=== PATIENT | male | born 1980 | race Caucasian/White ===

== ENCOUNTER 2017-10-08 20:35 | Inpatient (IN) | payer MEDICARE, MEDICAID ==
[~2017-10-08] VITALS: Ht 174 cm; Wt 116.9 kg
[~2017-10-08 20:35] MED LIST: PARO40TA PO; TEMA15CA PO
[2017-10-08 20:51] LABS: BASOPHILS % (AUTO) 0.9 % (0.0-2.0); EOSINOPHILS % (AUTO) 2.7 % (1.0-6.0); HEMATOCRIT 43.6 % (41-53); HEMOGLOBIN 15.8 g/dL (13.5-17.5); LYMPHOCYTES # (AUTO) 3.1 K/uL (1.0-4.8); LYMPHOCYTES % (AUTO) 31.1 % (22.0-44.0); MEAN CORPUSCULAR HEMOGLOBIN 31.7 pg (26.0-34.0); MEAN CORPUSCULAR HGB CONC 36.2 G/dL (31.0-37.0); MEAN CORPUSCULAR VOLUME 87 fL (80-100); MONOCYTES # (AUTO) 0.5 K/uL (0.1-1.0); MONOCYTES % (AUTO) 4.6 % (2.0-9.0); NEUTROPHILS % (AUTO) 60.7 % (40.0-70.0); PLATELET COUNT (AUTO) 238 K/uL (150-450); RED BLOOD CELL COUNT(AUTO) 4.99 MIL/uL (4.50-5.90); RED CELL DISTRIBUTION WIDTH 13.7 % (11.5-14.5)
[2017-10-08 20:58] LABS: ANION GAP 7 mmol/L (8-16); CALCIUM, TOTAL 8.9 mg/dL (8.8-10.5); CARBON DIOXIDE 30 mmol/L (22-29); CHLORIDE 98 mmol/L (98-107); CREATININE 1.01 mg/dL (0.60-1.30); GLOMERULAR FILTR. RATE CALC > 60 mL/min (>60); GLUCOSE,RANDOM 280 mg/dL (70-110); POTASSIUM 4.2 mmol/L (3.5-5.1); SODIUM SERUM 135 mmol/L (136-145); UREA NITROGEN, BLOOD 13 mg/dL (7-18)
[2017-10-08 21:02] LABS: AMPHET/METH SCREEN,URINE NEGATIVE (NEGATIVE); BARBITURATE SCREEN, URINE NEGATIVE (NEGATIVE); BENZODIAZEPINES SCREEN,URINE NEGATIVE (NEGATIVE); CANNABINOID SCREEN,URINE NEGATIVE (NEGATIVE); COCAINE SCREEN,URINE NEGATIVE (NEGATIVE); METHADONE SCREEN, URINE NEGATIVE (NEGATIVE); OPIATE SCREEN,URINE NEGATIVE (NEGATIVE); PHENCYCLIDINE SCREEN,URINE NEGATIVE (NEGATIVE)
[2017-10-08] MEDS ORDERED: CLON2 PO (21:02)
[2017-10-08] MEDS ORDERED: SERT100T12 PO (21:02)
[2017-10-08] MEDS ORDERED: LISI-661 PO (21:02)
[2017-10-08] MEDS ORDERED: SIMV-259 PO (21:02)
[2017-10-08] MEDS ORDERED: LORA10TA7 PO (21:02)
[2017-10-08] MEDS ORDERED: GABA-531 PO (21:02)
[2017-10-08] MEDS ORDERED: FLUT16H NASAL (21:02)
[2017-10-08 21:03] LABS: ALANINE AMINOTRANSFERASE 83 U/L (12-78); ALBUMIN 4.1 g/dL (3.4-5.0); ALKALINE PHOSPHATASE 108 U/L (46-116); ASPARTATE AMINOTRANSFERASE 33 U/L (15-37); BILIRUBIN,TOTAL 0.5 mg/dL (0.1-1.0)
[2017-10-08 21:44] LABS: TOTAL PROTEIN, SERUM 7.2 g/dL (6.4-8.2)
[2017-10-08] MEDS ORDERED: HALOPERIDOL 5 MG TABLET PO ONE (21:45)
[2017-10-08] MEDS ORDERED: LORazepam 2 MG TABLET PO ONE (21:45)
[2017-10-08] MEDS ORDERED: DiphenhydrAMINE HCL 50 MG CAPSULE PO ONE (21:45)
[2017-10-08] MEDS ORDERED: ZOLPIDEM TARTRATE 10 MG TABLET PO PRN (22:30)
[2017-10-08] MEDS ORDERED: HALOPERIDOL 5 MG TABLET PO PRN (22:30)
[2017-10-08] MEDS ORDERED: LORazepam 2 MG TABLET PO PRN (22:30)
[2017-10-09 03:15] LABS: CHOL/HDL RATIO 10.6 (4.2-7.3); CHOLESTEROL 211 mg/dL (131-200); HDL CHOLESTEROL 20 mg/dL (40-60); TRIGLYCERIDES 1429 mg/dL (15-150)
[2017-10-09 12:44] VITALS: BP 120/71
[2017-10-09 16:05] VITALS: BP 126/73
[2017-10-10 04:28] VITALS: BP 121/71
[2017-10-10 08:00] VITALS: BP 157/90
[2017-10-10] MEDS ORDERED: BACITRACIN 28.4 GM OINTMENT TP PRN (08:00)
[2017-10-10] MEDS ORDERED: BENZOCAINE/MENTHOL LOZENGE [8 LOZENGES/PACKET] MM PRN (08:00)
[2017-10-10] MEDS ORDERED: ONDANSETRON HCL 4 MG TABLET PO PRN (08:00)
[2017-10-10] MEDS ORDERED: ACETAMINOPHEN 325 MG TABLET PO PRN ×2 (08:00→12:00)
[2017-10-10] MEDS ORDERED: IBUPROFEN 600 MG TABLET PO PRN (08:00)
[2017-10-10] MEDS ORDERED: CloNIDine HCL 0.1 MG TABLET PO PRN (08:00)
[2017-10-10] MEDS ORDERED: MAGNESIUM HYDROXIDE SUSPENSION 30 ML UDCUP PO PRN ×2 (08:00→12:00)
[2017-10-10] MEDS ORDERED: ALBUTEROL SULFATE HFA 90 MCG/PUFF 8 GM INHALER IH PRN (08:00)
[2017-10-10] MEDS ORDERED: DEXTROSE 50%-WATER 25 GM/50 ML SYRINGE IVP PRN (08:00)
[2017-10-10] MEDS ORDERED: MAG HYDROX/AL HYDROX/SIMETH ES 30 ML SUSPENSION UDCUP PO PRN ×2 (08:00→12:00)
[2017-10-10] MEDS ORDERED: PETROLATUM,WHITE 71 GM JELLY TP PRN (08:00)
[2017-10-10] MEDS ORDERED: LOPERAMIDE HCL 2 MG CAPSULE PO PRN ×2 (08:00→12:00)
[2017-10-10] MEDS: OMEGA-3/DHA/EPA/FISH OIL 1,000 MG CAPSULE PO SCH (09:13)
[2017-10-10] MEDS: LORATADINE 10 MG TABLET PO SCH (09:13)
[2017-10-10] MEDS: LISINOPRIL 10 MG TABLET PO SCH (09:14)
[2017-10-10] MEDS: FLUTICASONE PROPIONATE 50 MCG/SPRAY 16 GM NASAL SPRAY NASAL PRN (09:15)
[2017-10-10] MEDS ORDERED: OLANZapine 5 MG RAPDIS TABLET PO PRN (12:00)
[2017-10-10] MEDS ORDERED: TUBERCULIN, PURIFIED PROTEIN DERIVATIVE 5 TU/0.1 ML SYG ID ONE (12:00)
[2017-10-10] MEDS ORDERED: GuaiFENesin/D-METHORPHAN [SUGAR-FREE] 200-20MG/10 ML SYRUP UDCUP PO PRN (12:00)
[2017-10-10] MEDS ORDERED: HydrOXYzine PAMOATE 50 MG CAPSULE PO PRN (12:00)
[2017-10-10] MEDS: GABAPENTIN 300 MG CAPSULE PO SCH ×2 (13:43→16:11)
[2017-10-10] MEDS: THIAMINE HCL 100 MG TABLET PO SCH (16:11)
[2017-10-10 16:22] VITALS: BP 129/76
[2017-10-10 16:47] LABS: GLUCOMETER DEV NAME(LOC) 3EI B; GLUCOSE,POINT OF CARE 208 MG/DL (70-110)
[2017-10-10] MEDS: INSULIN ASPART 100 UNITS/ML SQ PRN ×2 (17:05→20:55)
[2017-10-10] MEDS ORDERED: OLAN5TAB30 PO (17:22)
[2017-10-10] MEDS ORDERED: OMEG-135 PO (17:22)
[2017-10-10] MEDS ORDERED: SERT100T12 PO (17:22)
[2017-10-10] MEDS ORDERED: GABA-531 PO (17:22)
[2017-10-10 20:57] LABS: GLUCOMETER DEV NAME(LOC) 3EI B; GLUCOSE,POINT OF CARE 232 MG/DL (70-110)
[2017-10-10] MEDS ORDERED: SIMVASTATIN 10 MG TABLET PO SCH (21:00)
[2017-10-10] MEDS ORDERED: OLANZapine 5 MG RAPDIS TABLET PO SCH (21:00)
[2017-10-11 05:28] LABS: GLUCOMETER DEV NAME(LOC) 3EI B; GLUCOSE,POINT OF CARE 155 MG/DL (70-110)
[2017-10-11] MEDS: INSULIN ASPART 100 UNITS/ML SQ PRN (07:02)
[2017-10-11 07:53] LABS: HEMOGLOBIN A1C 7.3 % (4.5-6.2)
[2017-10-11] MEDS: LISINOPRIL 10 MG TABLET PO SCH (07:54)
[2017-10-11] MEDS: GABAPENTIN 300 MG CAPSULE PO SCH ×2 (07:54→12:20)
[2017-10-11] MEDS: THIAMINE HCL 100 MG TABLET PO SCH (07:54)
[2017-10-11] MEDS: FLUTICASONE PROPIONATE 50 MCG/SPRAY 16 GM NASAL SPRAY NASAL PRN (07:55)
[2017-10-11] MEDS: OMEGA-3/DHA/EPA/FISH OIL 1,000 MG CAPSULE PO SCH (07:55)
[2017-10-11] MEDS: LORATADINE 10 MG TABLET PO SCH (07:55)
[2017-10-11 08:10] LABS: CHOL/HDL RATIO 5.8 (4.2-7.3); THYROID STIMULATING HORMONE 2.04 uIU/mL (0.36-3.74)
[2017-10-11] MEDS ORDERED: SERTRALINE HCL 100 MG TABLET PO SCH (09:00)
[2017-10-11] MEDS ORDERED: MULTIVITAMINS WITH MINERALS, THERAPEUTIC TABLET PO SCH (09:00)
[2017-10-11] MEDS ORDERED: FOLIC ACID 1 MG TABLET PO SCH (09:00)
[2017-10-11 09:19] VITALS: BP 138/87
[2017-10-11 11:13] LABS: GLUCOMETER DEV NAME(LOC) 3EI B; GLUCOSE,POINT OF CARE 136 MG/DL (70-110)
[2017-10-11] MEDS ORDERED: LISI-660 PO (11:20)
[2017-10-11] MEDS ORDERED: OMEG-135 PO (11:20)
== END 2017-10-11 14:49 | disposition home or self-care (01) | DRG 885 ==
LOC: EMS 20:36 → B2X 10-09 10:00 → 3EI 10-09 19:13
PROVIDERS: ADMIT Psychiatry & Neurology Child & Adolescent Psychiatry; ATTEND Psychiatry & Neurology Psychiatry
DX: F20.9 Schizophrenia, unspecified (principal); E87.1 Hypo-osmolality and hyponatremia; E66.9 Obesity, unspecified; R45.850 Homicidal ideations; E78.5 Hyperlipidemia, unspecified; I10 Essential (primary) hypertension; J44.9 Chronic obstructive pulmonary disease, unspecified; F41.9 Anxiety disorder, unspecified; J31.0 Chronic rhinitis; G47.00 Insomnia, unspecified; F10.10 Alcohol abuse, uncomplicated; R73.9 Hyperglycemia, unspecified; F22 Delusional disorders; Z71.41 Alcohol abuse counseling and surveillance of alcoholic; Z56.0 Unemployment, unspecified; Z68.38 Body mass index [BMI] 38.0-38.9, adult; Z79.899 Other long term (current) drug therapy
CPT/HCPCS: 80074; 82306; 82962; 83036; 84295; 84443; 99285; G0480

== ENCOUNTER 2018-11-01 21:31 | Emergency (ER) | payer MEDICARE, MEDICAID ==
[~2018-11-01] VITALS: Ht 175.3 cm; Wt 103.0 kg
[~2018-11-01 21:31] MED LIST changes: +GABA-531 PO; +LISI-660 PO; +LORA10TA7 PO; +OLAN5TAB30 PO; +OMEG-135 PO; -PARO40TA PO; +SERT100T12 PO; +SIMV-259 PO; -TEMA15CA PO
[2018-11-02 02:33] LABS: AMPHET/METH SCREEN,URINE NEGATIVE (NEGATIVE); BARBITURATE SCREEN, URINE NEGATIVE (NEGATIVE); BENZODIAZEPINES SCREEN,URINE NEGATIVE (NEGATIVE); CANNABINOID SCREEN,URINE POSITIVE (NEGATIVE); COCAINE SCREEN,URINE NEGATIVE (NEGATIVE); METHADONE SCREEN, URINE NEGATIVE (NEGATIVE); OPIATE SCREEN,URINE NEGATIVE (NEGATIVE)
[2018-11-02 02:36] LABS: PHENCYCLIDINE SCREEN,URINE NEGATIVE (NEGATIVE)
[2018-11-02 04:52] VITALS: BP 128/79
== END 2018-11-02 05:09 | disposition home or self-care (01) ==
LOC: EMS 21:32
DX: F12.929 Cannabis use, unspecified with intoxication, unspecified (principal); F32.9 Major depressive disorder, single episode, unspecified; F20.9 Schizophrenia, unspecified; F41.9 Anxiety disorder, unspecified; I10 Essential (primary) hypertension; E78.00 Pure hypercholesterolemia, unspecified; Z79.899 Other long term (current) drug therapy
CPT/HCPCS: 36415; 80307; 99283; G0480

== ENCOUNTER 2020-05-27 21:07 | Emergency (ER) | payer MEDICARE, MEDICAID ==
[~2020-05-27] VITALS: Ht 170.2 cm; Wt 104.5 kg
[2020-05-27 22:02] LABS: GLUCOSE,POINT OF CARE 80 MG/DL (70-110)
[2020-05-27 22:30] LABS: COVID AG,FIA SOURCE NASOPHARYNGEAL
[2020-05-27 22:32] LABS: BASOPHILS % (AUTO) 0.6 % (0.0-2.0); EOSINOPHILS % (AUTO) 3.7 % (1.0-6.0); HEMOGLOBIN 13.2 g/dL (13.5-17.5); LYMPHOCYTES # (AUTO) 2.7 K/uL (1.0-4.8); LYMPHOCYTES % (AUTO) 30.2 % (22.0-44.0); MEAN CORPUSCULAR HEMOGLOBIN 30.1 pg (26.0-34.0); MEAN CORPUSCULAR HGB CONC 33.8 G/dL (31.0-37.0); MEAN CORPUSCULAR VOLUME 89 fL (80-100); MONOCYTES # (AUTO) 0.5 K/uL (0.1-1.0); MONOCYTES % (AUTO) 5.4 % (2.0-9.0); NEUTROPHILS # (AUTO) 5.4 K/uL (1.8-7.7); NEUTROPHILS % (AUTO) 60.1 % (40.0-70.0); PLATELET COUNT (AUTO) 198 K/uL (150-450); RED BLOOD CELL COUNT(AUTO) 4.38 MIL/uL (4.50-5.90); RED CELL DISTRIBUTION WIDTH 13.5 % (11.5-14.5)
[2020-05-27 22:39] LABS: AMPHET/METH SCREEN,URINE NEGATIVE (NEGATIVE); BARBITURATE SCREEN, URINE NEGATIVE (NEGATIVE); BENZODIAZEPINES SCREEN,URINE NEGATIVE (NEGATIVE); CANNABINOID SCREEN,URINE NEGATIVE (NEGATIVE); COCAINE SCREEN,URINE NEGATIVE (NEGATIVE); METHADONE SCREEN, URINE NEGATIVE (NEGATIVE); OPIATE SCREEN,URINE NEGATIVE (NEGATIVE)
[2020-05-27 22:40] LABS: PHENCYCLIDINE SCREEN,URINE NEGATIVE (NEGATIVE)
[2020-05-27 22:47] LABS: ANION GAP 10 mmol/L (8-16); CALCIUM, TOTAL 9.4 mg/dL (8.8-10.5); CARBON DIOXIDE 27 mmol/L (22-29); CHLORIDE 100 mmol/L (98-107); CREATININE 0.84 mg/dL (0.60-1.30); GLOMERULAR FILTR. RATE CALC > 60 mL/min (>60); GLUCOSE,RANDOM 81 mg/dL (70-110); POTASSIUM 3.2 mmol/L (3.5-5.1); SODIUM SERUM 137 mmol/L (136-145); UREA NITROGEN, BLOOD 11 mg/dL (7-18)
[2020-05-27 22:54] LABS: ALANINE AMINOTRANSFERASE 59 U/L (12-78); ALBUMIN 4.1 g/dL (3.4-5.0); ALKALINE PHOSPHATASE 75 U/L (46-116); ASPARTATE AMINOTRANSFERASE 32 U/L (15-37); BILIRUBIN,TOTAL 0.3 mg/dL (0.1-1.0); TOTAL PROTEIN, SERUM 6.9 g/dL (6.4-8.2)
[2020-05-28] MEDS ORDERED: POTASSIUM CHLORIDE 20 MEQ ER TABLET PO ONE
[2020-05-28 00:40] VITALS: BP 124/72
== END 2020-05-28 00:45 | disposition home or self-care (01) ==
LOC: EMS 21:08
DX: R45.851 Suicidal ideations (principal); F32.9 Major depressive disorder, single episode, unspecified; I10 Essential (primary) hypertension; E78.00 Pure hypercholesterolemia, unspecified; F41.9 Anxiety disorder, unspecified; Z20.828 Contact with and (suspected) exposure to other viral communicable diseases
CPT/HCPCS: 36415; 80053; 80307; 82962; 85025; 87426; 99284; G0480

== ENCOUNTER 2022-03-03 09:48 | Emergency (ER) | payer MEDICARE, MEDICAID ==
[~2022-03-03] VITALS: Ht 172.7 cm; Wt 105.0 kg
[~2022-03-03 09:48] MED LIST changes: -LISI-660 PO; +LISI-892 PO; +OMEG-108 PO; -OMEG-135 PO; +SERT-162 PO; -SERT100T12 PO
[2022-03-03] MEDS ORDERED: SODIUM CHLORIDE 0.9% 1,000 ML IV ONE (10:15)
[2022-03-03 10:29] LABS: BASOPHILS % (AUTO) 0.3 % (0.0-2.0); EOSINOPHILS % (AUTO) 2.3 % (1.0-6.0); HEMATOCRIT 37.9 % (41-53); HEMOGLOBIN 13.1 g/dL (13.5-17.5); LYMPHOCYTES # (AUTO) 2.3 K/uL (1.0-4.8); LYMPHOCYTES % (AUTO) 25.9 % (22.0-44.0); MEAN CORPUSCULAR HEMOGLOBIN 29.9 pg (26.0-34.0); MEAN CORPUSCULAR HGB CONC 34.7 G/dL (31.0-37.0); MEAN CORPUSCULAR VOLUME 86 fL (80-100); MONOCYTES # (AUTO) 0.6 K/uL (0.1-1.0); MONOCYTES % (AUTO) 7.3 % (2.0-9.0); NEUTROPHILS # (AUTO) 5.6 K/uL (1.8-7.7); NEUTROPHILS % (AUTO) 64.2 % (40.0-70.0); PLATELET COUNT (AUTO) 217 K/uL (150-450); RED CELL DISTRIBUTION WIDTH 13.5 % (11.5-14.5)
[2022-03-03 10:53] LABS: ANION GAP 9 mmol/L (8-16); CARBON DIOXIDE 25 mmol/L (22-29); CHLORIDE 103 mmol/L (98-107); CREATININE 1.13 mg/dL (0.60-1.30); GLUCOSE,RANDOM 202 mg/dL (70-110); POTASSIUM 3.5 mmol/L (3.5-5.1); SODIUM SERUM 137 mmol/L (136-145); UREA NITROGEN, BLOOD 14 mg/dL (7-18)
[2022-03-03 11:00] LABS: ALANINE AMINOTRANSFERASE 34 U/L (12-78); ALBUMIN 3.9 g/dL (3.4-5.0); ALKALINE PHOSPHATASE 92 U/L (46-116); ASPARTATE AMINOTRANSFERASE 16 U/L (15-37); BILIRUBIN,TOTAL 0.2 mg/dL (0.1-1.0); GLOMERULAR FILTR. RATE CALC > 60 mL/min (>60); TOTAL PROTEIN, SERUM 7.4 g/dL (6.4-8.2)
[2022-03-03 13:28] VITALS: BP 122/81
== END 2022-03-03 14:14 | disposition home or self-care (01) ==
LOC: EMS 09:48
DX: F12.129 Cannabis abuse with intoxication, unspecified (principal); I10 Essential (primary) hypertension; F41.9 Anxiety disorder, unspecified; F32.9 Major depressive disorder, single episode, unspecified; F20.9 Schizophrenia, unspecified; E78.00 Pure hypercholesterolemia, unspecified; Z79.899 Other long term (current) drug therapy
CPT/HCPCS: 99284; 96360; 80053; 85025; 36415; 93005; J7030

== ENCOUNTER 2022-06-04 19:00 | Emergency (ER) | payer MEDICARE, MEDICAID ==
[~2022-06-04] VITALS: Ht 172.7 cm; Wt 102.3 kg
[~2022-06-04 19:00] MED LIST changes: -OMEG-108 PO; +OMEG-135 PO
[2022-06-04 20:46] VITALS: BP 118/79
== END 2022-06-04 20:50 | disposition home or self-care (01) ==
LOC: EMS 19:00
DX: S60.222A Contusion of left hand, initial encounter (principal); F41.9 Anxiety disorder, unspecified; F32.A Depression, unspecified; E78.00 Pure hypercholesterolemia, unspecified; I10 Essential (primary) hypertension; F20.9 Schizophrenia, unspecified; F12.90 Cannabis use, unspecified, uncomplicated; W19.XXXA Unspecified fall, initial encounter; Y93.89 Activity, other specified; Y92.89 Other specified places as the place of occurrence of the external cause; Y99.8 Other external cause status
CPT/HCPCS: 99283

== ENCOUNTER 2023-08-19 15:30 | Emergency (ER) | payer MEDICARE, MEDICAID ==
[~2023-08-19] VITALS: Ht 175.3 cm; Wt 110.0 kg
[2023-08-19 16:51] LABS: BASOPHILS % (AUTO) 0.5 % (0.0-2.0); HEMATOCRIT 37.8 % (41-53); HEMOGLOBIN 13.2 g/dL (13.5-17.5); LYMPHOCYTES # (AUTO) 1.8 K/uL (1.0-4.8); LYMPHOCYTES % (AUTO) 25.8 % (22.0-44.0); MEAN CORPUSCULAR HEMOGLOBIN 31.4 pg (26.0-34.0); MEAN CORPUSCULAR VOLUME 90 fL (80-100); MONOCYTES # (AUTO) 0.5 K/uL (0.1-1.0); MONOCYTES % (AUTO) 7.4 % (2.0-9.0); NEUTROPHILS # (AUTO) 4.3 K/uL (1.8-7.7); NEUTROPHILS % (AUTO) 61.3 % (40.0-70.0); PLATELET COUNT (AUTO) 214 K/uL (150-450); RED BLOOD CELL COUNT(AUTO) 4.21 MIL/uL (4.50-5.90); RED CELL DISTRIBUTION WIDTH 13.5 % (11.5-14.5); WHITE BLOOD COUNT (AUTO) 7.1 K/uL (4.5-11.0)
[2023-08-19 17:13] LABS: ALCOHOL, BLOOD (SERUM) < 3 mg/dL (0-10)
[2023-08-19 17:14] LABS: ALBUMIN 3.9 g/dL (3.4-5.0); ALKALINE PHOSPHATASE 113 U/L (46-116); ANION GAP 13 mmol/L (8-16); ASPARTATE AMINOTRANSFERASE 23 U/L (15-37); BILIRUBIN,TOTAL 0.2 mg/dL (0.1-1.0); CALCIUM, TOTAL 8.2 mg/dL (8.8-10.5); CARBON DIOXIDE 24 mmol/L (22-29); CHLORIDE 105 mmol/L (98-107); CREATININE 1.03 mg/dL (0.60-1.30); GLOMERULAR FILTR. RATE CALC > 60 mL/min (>60); GLUCOSE,RANDOM 128 mg/dL (70-110); POTASSIUM 3.7 mmol/L (3.5-5.1); SODIUM SERUM 142 mmol/L (136-145); UREA NITROGEN, BLOOD 15 mg/dL (7-18)
[2023-08-19 17:36] LABS: ALANINE AMINOTRANSFERASE 51 U/L (12-78)
[2023-08-19 17:39] LABS: PH,URINE DRUG SCREEN 5.5 (5.0-8.0)
[2023-08-19 17:43] LABS: AMPHET/METH SCREEN,URINE NEGATIVE (NEGATIVE); BARBITURATE SCREEN, URINE NEGATIVE (NEGATIVE); BENZODIAZEPINES SCREEN,URINE NEGATIVE (NEGATIVE); CANNABINOID SCREEN,URINE POSITIVE (NEGATIVE); COCAINE SCREEN,URINE NEGATIVE (NEGATIVE); METHADONE SCREEN, URINE NEGATIVE (NEGATIVE); OPIATE SCREEN,URINE NEGATIVE (NEGATIVE); PHENCYCLIDINE SCREEN,URINE NEGATIVE (NEGATIVE)
[2023-08-19 17:44] LABS: ALCOHOL, URINE DRUG SCREEN NEGATIVE (NEGATIVE)
[2023-08-19] MEDS ORDERED: HALOPERIDOL 5 MG TABLET PO ONE (20:15)
[2023-08-19] MEDS ORDERED: DiphenhydrAMINE HCL 25 MG CAPSULE PO ONE (20:15)
[2023-08-19] MEDS ORDERED: LORazepam 2 MG TABLET PO ONE (20:15)
[2023-08-19 20:21] LABS: COVID AG,FIA SOURCE NASAL SWAB
[2023-08-19 20:22] VITALS: BP 140/90; PULSE 88; RESP 18; TEMP 98.2
[2023-08-19 20:38] LABS: SARS-COV2 (COVID) ANTIGEN,FIA Negative (Negative)
== END 2023-08-19 22:14 | disposition home or self-care (01) ==
LOC: EMS 15:32
DX: F20.0 Paranoid schizophrenia (principal); F41.9 Anxiety disorder, unspecified; F32.A Depression, unspecified; E78.00 Pure hypercholesterolemia, unspecified; I10 Essential (primary) hypertension; F12.90 Cannabis use, unspecified, uncomplicated; Z20.822 Contact with and (suspected) exposure to COVID-19
CPT/HCPCS: 99284; 87426; 80053; 85025; 36415; 80307; G0480

== ENCOUNTER 2023-12-23 13:59 | Emergency (ER) | payer OTHER, MEDICAID ==
[~2023-12-23] VITALS: Ht 172.7 cm; Wt 86.4 kg
[2023-12-23 14:13] VITALS: TEMP 97.9
[2023-12-23] MEDS: KETOROLAC TROMETHAMINE 30 MG/ML VIAL IM ONE (17:03)
[2023-12-23] MEDS: TraMADol HCL 50 MG TABLET PO ONE (17:04)
[2023-12-23 18:25] VITALS: BP 133/74; PULSE 75; RESP 18
== END 2023-12-23 19:10 | disposition home or self-care (01) ==
LOC: EMS 16:39
DX: S46.212A Strain of muscle, fascia and tendon of other parts of biceps, left arm, initial encounter (principal); F41.9 Anxiety disorder, unspecified; F32.A Depression, unspecified; E78.00 Pure hypercholesterolemia, unspecified; I10 Essential (primary) hypertension; F12.90 Cannabis use, unspecified, uncomplicated; X50.9XXA Other and unspecified overexertion or strenuous movements or postures, initial encounter; Y93.89 Activity, other specified; Y92.89 Other specified places as the place of occurrence of the external cause; Y99.0 Civilian activity done for income or pay
CPT/HCPCS: 99283; 73080; 96372; J1885

== ENCOUNTER 2024-01-03 13:45 | Inpatient (IN) | payer MEDICARE, MEDICAID ==
[~2024-01-03] VITALS: Ht 175.3 cm; Wt 107.3 kg
[2024-01-03 14:50] LABS: PH,URINE DRUG SCREEN 5.5 (5.0-8.0)
[2024-01-03 14:56] LABS: ALCOHOL, URINE DRUG SCREEN NEGATIVE (NEGATIVE); AMPHET/METH SCREEN,URINE NEGATIVE (NEGATIVE); BARBITURATE SCREEN, URINE NEGATIVE (NEGATIVE); BENZODIAZEPINES SCREEN,URINE NEGATIVE (NEGATIVE); CANNABINOID SCREEN,URINE NEGATIVE (NEGATIVE); COCAINE SCREEN,URINE NEGATIVE (NEGATIVE); METHADONE SCREEN, URINE NEGATIVE (NEGATIVE); OPIATE SCREEN,URINE NEGATIVE (NEGATIVE); PHENCYCLIDINE SCREEN,URINE NEGATIVE (NEGATIVE)
[2024-01-03 14:56] LABS: BASOPHILS % (AUTO) 0.5 % (0.0-2.0); EOSINOPHILS % (AUTO) 3.2 % (1.0-6.0); HEMATOCRIT 40.4 % (41-53); HEMOGLOBIN 13.8 g/dL (13.5-17.5); LYMPHOCYTES # (AUTO) 1.7 K/uL (1.0-4.8); LYMPHOCYTES % (AUTO) 21.6 % (22.0-44.0); MEAN CORPUSCULAR HEMOGLOBIN 30.3 pg (26.0-34.0); MEAN CORPUSCULAR HGB CONC 34.1 G/dL (31.0-37.0); MEAN CORPUSCULAR VOLUME 89 fL (80-100); MONOCYTES # (AUTO) 0.5 K/uL (0.1-1.0); NEUTROPHILS # (AUTO) 5.4 K/uL (1.8-7.7); NEUTROPHILS % (AUTO) 68.7 % (40.0-70.0); PLATELET COUNT (AUTO) 206 K/uL (150-450); RED BLOOD CELL COUNT(AUTO) 4.54 MIL/uL (4.50-5.90); RED CELL DISTRIBUTION WIDTH 13.6 % (11.5-14.5); WHITE BLOOD COUNT (AUTO) 7.8 K/uL (4.5-11.0)
[2024-01-03 15:05] LABS: ANION GAP 12 mmol/L (8-16); CALCIUM, TOTAL 8.6 mg/dL (8.8-10.5); CARBON DIOXIDE 24 mmol/L (22-29); CHLORIDE 102 mmol/L (98-107); CREATININE 0.81 mg/dL (0.60-1.30); GLOMERULAR FILTR. RATE CALC > 60 mL/min (>60); GLUCOSE,RANDOM 104 mg/dL (70-110); POTASSIUM 3.4 mmol/L (3.5-5.1); SODIUM SERUM 138 mmol/L (136-145); UREA NITROGEN, BLOOD 13 mg/dL (7-18)
[2024-01-03 15:13] LABS: ALANINE AMINOTRANSFERASE 61 U/L (12-78); ALBUMIN 4.3 g/dL (3.4-5.0); ALKALINE PHOSPHATASE 81 U/L (46-116); ASPARTATE AMINOTRANSFERASE 31 U/L (15-37); BILIRUBIN,TOTAL 0.3 mg/dL (0.1-1.0); TOTAL PROTEIN, SERUM 7.5 g/dL (6.4-8.2)
[2024-01-03 15:26] LABS: ALCOHOL, BLOOD (SERUM) < 3 mg/dL (0-10)
[2024-01-03 15:38] LABS: COVID AG,FIA SOURCE NASAL SWAB
[2024-01-03 15:42] LABS: SARS-COV2 (COVID) ANTIGEN,FIA Negative (Negative)
[2024-01-03] MEDS ORDERED: HALOPERIDOL 5 MG TABLET PO PRN (21:15)
[2024-01-03] MEDS ORDERED: ZOLPIDEM TARTRATE 10 MG TABLET PO PRN (21:15)
[2024-01-04 02:03] VITALS: BP 129/95; PULSE 76; RESP 16; TEMP 97.6; O2SAT 97
[2024-01-04] MEDS ORDERED: BENZOCAINE/MENTHOL LOZENGE PO PRN (06:00)
[2024-01-04] MEDS ORDERED: ONDANSETRON HCL 4 MG TABLET PO PRN (06:00)
[2024-01-04] MEDS ORDERED: MAGNESIUM HYDROXIDE SUSPENSION 30 ML UDCUP PO PRN (06:00)
[2024-01-04] MEDS ORDERED: ACETAMINOPHEN 325 MG TABLET PO PRN (06:00)
[2024-01-04] MEDS ORDERED: ALBUTEROL SULFATE HFA 90 MCG/PUFF 8 GM INHALER IH PRN (06:00)
[2024-01-04] MEDS ORDERED: OMEPRAZOLE 20 MG CAPSULE PO PRN (06:00)
[2024-01-04] MEDS ORDERED: MAG HYDROX/ALUMINUM HYD/SIMETH ES 30 ML SUSPENSION UDCUP PO PRN (06:00)
[2024-01-04] MEDS ORDERED: CloNIDine HCL 0.1 MG TABLET PO PRN (06:00)
[2024-01-04] MEDS ORDERED: BACITRACIN 28 GM OINTMENT TP PRN (06:00)
[2024-01-04] MEDS ORDERED: PETROLATUM,WHITE 28 GM JELLY TP PRN (06:00)
[2024-01-04] MEDS ORDERED: DOCUSATE SODIUM 100 MG CAPSULE PO PRN (06:00)
[2024-01-04] MEDS ORDERED: IBUPROFEN 600 MG TABLET PO PRN (06:00)
[2024-01-04] MEDS ORDERED: LOPERAMIDE HCL 2 MG CAPSULE PO PRN (06:00)
[2024-01-04] MEDS: POTASSIUM CHLORIDE 20 MEQ ER TABLET PO ONE (06:41)
[2024-01-04 08:39] VITALS: BP 118/69; PULSE 77; RESP 17; TEMP 97.2; O2SAT 95
[2024-01-04] MEDS: SIMVASTATIN 10 MG TABLET PO SCH (09:14)
[2024-01-04] MEDS: OMEGA-3/DHA/EPA/FISH OIL 1,000 MG CAPSULE PO SCH (09:14)
[2024-01-04] MEDS: LISINOPRIL 5 MG TABLET PO SCH (09:14)
[2024-01-04] MEDS: SERTRALINE HCL 100 MG TABLET PO SCH (12:21)
[2024-01-04] MEDS: GABAPENTIN 300 MG CAPSULE PO SCH (13:13)
[2024-01-04 20:28] VITALS: BP 122/72; PULSE 73; RESP 18; TEMP 97.1; O2SAT 97
[2024-01-04] MEDS: OLANZapine 5 MG RAPDIS TABLET PO SCH (20:34)
[2024-01-05 08:37] LABS: HEMOGLOBIN A1C 6.9 % (3.8-5.6)
[2024-01-05] MEDS: LORazepam 2 MG TABLET PO PRN (08:42)
[2024-01-05 08:44] VITALS: BP 119/86; PULSE 77; RESP 18; TEMP 97.6; O2SAT 96
[2024-01-05 08:44] LABS: CHOL/HDL RATIO 3.4 (4.2-7.3); FREE T4 (FREE THYROXINE) 0.83 ng/dL (0.76-1.46); POTASSIUM 4.3 mmol/L (3.5-5.1); THYROID STIMULATING HORMONE 1.46 uIU/mL (0.36-3.74)
[2024-01-05] MEDS ORDERED: LISINOPRIL 5 MG TABLET PO SCH (09:00)
[2024-01-05] MEDS ORDERED: SIMVASTATIN 10 MG TABLET PO SCH (09:00)
[2024-01-05 20:55] VITALS: BP 135/79; PULSE 99; RESP 18; TEMP 98.5; O2SAT 97
[2024-01-06 08:32] VITALS: BP 125/79; PULSE 107; RESP 19; TEMP 98.7; O2SAT 96
[2024-01-06] MEDS ORDERED: SERT-440 PO (15:16)
[2024-01-06] MEDS ORDERED: QUET200T30 PO (15:16)
[2024-01-06] MEDS ORDERED: LISI10TA24 PO (15:16)
[2024-01-06] MEDS ORDERED: METF-1211 PO (15:16)
[2024-01-06] MEDS ORDERED: ATOR40TA71 PO (15:16)
[2024-01-06] MEDS ORDERED: GABA-1181 PO (15:18)
[2024-01-06] MEDS: LITHIUM CARBONATE 300 MG CAPSULE PO SCH (16:15)
[2024-01-06] MEDS: DIVALPROEX SODIUM 500 MG DR TABLET PO SCH (16:15)
[2024-01-06 20:35] VITALS: BP 135/76; PULSE 100; RESP 18; TEMP 97.5; O2SAT 97
[2024-01-07 10:50] VITALS: BP 124/84; PULSE 86; RESP 16; TEMP 97.8; O2SAT 95
[2024-01-07] MEDS ORDERED: OLAN5TAB94 PO (16:28)
[2024-01-07] MEDS ORDERED: LITH300C3 PO (16:28)
[2024-01-07] MEDS ORDERED: [UNRECOGNIZED DRUG - CODE] PO (16:35)
[2024-01-07] MEDS ORDERED: OMEG-135 PO (16:36)
== END 2024-01-07 17:00 | disposition home or self-care (01) | DRG 885 ==
LOC: EMS 14:04 → B2S 22:46
PROVIDERS: ADMIT Psychiatry & Neurology Psychiatry; ATTEND Psychiatry & Neurology Psychiatry
PROC: GZHZZZZ Group Psychotherapy (ICD-10-PCS; principal; 2024-01-04)
PROC: GZ51ZZZ Individual Psychotherapy, Behavioral (ICD-10-PCS; 2024-01-04)
DX: F25.1 Schizoaffective disorder, depressive type (principal); R45.851 Suicidal ideations; I10 Essential (primary) hypertension; E78.00 Pure hypercholesterolemia, unspecified; E66.9 Obesity, unspecified; F41.9 Anxiety disorder, unspecified; S69.92XA Unspecified injury of left wrist, hand and finger(s), initial encounter; G47.00 Insomnia, unspecified; F10.90 Alcohol use, unspecified, uncomplicated; Z68.34 Body mass index [BMI] 34.0-34.9, adult; X58.XXXA Exposure to other specified factors, initial encounter; Y93.89 Activity, other specified; Y92.89 Other specified places as the place of occurrence of the external cause; Y99.8 Other external cause status
CPT/HCPCS: 80053; 80061; 80307; 83036; 84132; 84439; 84443; 85025; 99285; G0480